=== PATIENT | male | born 1985 | race Two or more races ===

== ENCOUNTER 2022-09-11 11:16 | Emergency (ER) | payer OTHER ==
[~2022-09-11] VITALS: Ht 180.3 cm; Wt 68.0 kg
--- NOTE | 2022-09-11 11:17 | NUR ---
BIBS C/O BILATERAL TESTICLE PAIN THAT STARTED THIS MORNING AND RADIATED TO HIS LOWER ABDOMEN. PT DENIES ANY TRAUMA. DENIES ANY DYSURIA, HEMATURIA. PT AMBULATED TO BED WITH STEADY GAIT. AAOX4. VSS. BEATHING EVEN AND UNLABORED. AWAITING MD ORDERS.
--- NOTE | 2022-09-11 11:38 | NUR ---
PT UNABLE TO PROVIDE URING AT THIS TIME.
[2022-09-11 12:32] LABS: BASOPHILS % (AUTO) 0.5 % (0.0-2.0); EOSINOPHILS % (AUTO) 1.5 % (0.0-6.0); HEMATOCRIT 44 % (39-51); HEMOGLOBIN 14.5 g/dL (13.5-17.5); LYMPHOCYTES # (AUTO) 1.8 K/uL (0.8-4.8); MEAN CORPUSCULAR HGB CONC 33 g/dl (31.0-36.0); MEAN CORPUSCULAR VOLUME 93 fL (80-96); MONOCYTES # (AUTO) 0.4 K/uL (0.1-1.30); MONOCYTES % (AUTO) 7.8 % (2.0-12.0); NEUTROPHILS # (AUTO) 3.4 K/uL (1.8-8.9); NEUTROPHILS % (AUTO) 59.2 % (43.0-81.0); PLATELET COUNT (AUTO) 240 K/uL (150-450); RED BLOOD CELL COUNT(AUTO) 4.68 MIL/uL (4.5-6.0); WHITE BLOOD COUNT (AUTO) 5.7 K/uL (4.3-11.0)
[2022-09-11 12:42] LABS: CALCIUM, SERUM 8.9 mg/dL (8.5-10.1); POTASSIUM 4.2 mmol/L (3.5-5.1)
--- NOTE | 2022-09-11 14:40 | NUR ---
PT DOMINICKD. I SPOKE TO THE PT OVER THE PHONE STATING "I HAD TO LEAVE AND I WILL FOLLOW UP WITH MY DOCTOR". MADE AWARE.
[2022-09-11 14:45] VITALS: BP 123/72
== END 2022-09-11 14:46 | disposition left against medical advice (07) ==
LOC: ER 11:23
DX: K40.90 Unilateral inguinal hernia, without obstruction or gangrene, not specified as recurrent (principal); N50.811 Right testicular pain; F41.9 Anxiety disorder, unspecified; Z88.8 Allergy status to other drugs, medicaments and biological substances; V49.60XA Unspecified car occupant injured in collision with unspecified motor vehicles in traffic accident, initial encounter; Y93.89 Activity, other specified; Y92.89 Other specified places as the place of occurrence of the external cause; Y99.8 Other external cause status
CPT/HCPCS: 36415; 76870-TC; 80048-TC; 85025-TC